=== PATIENT | male | born 1980 ===

== ENCOUNTER → 2020-02-13 | Outpatient (CLI) | payer OTHER ==
[~2020-02-13] MED LIST: ZOLPIDEM 5 MG TABLET. PO ONE
--- NOTE | 2020-02-14 12:00 | SLEEP ---
DATE OF STUDY: 02/13/2020 SLEEP STUDY ATTENDING PHYSICIAN: Jj Regan MD The patient is 39 years old who weighs 183 pounds with a BMI of 27. The patient underwent split night study performed at [facility]. His Nunda score was 10. During the night study, the patient spent 414 minutes in bed and slept for 253 minutes with a low sleep efficiency of 61%. Sleep latency was 27 minutes with a REM latency of 335 minutes. Sleep architecture showed increased stage 1 sleep, normal stage 2 sleep, normal slow wave and slightly reduced REM sleep. During the initial diagnostic portion of the study, the patient slept for 73 minutes. During that time, there were 73 obstructive apneas, no mixed or central apneas and 51 hypopneas. The patient's AHI was 103 per hour. Supine AHI was 109 per hour. The patient did not have REM sleep. EKG monitoring revealed no arrhythmias. Average heart rate was 80 beats per minute. No PLM seen. Nocturnal oximetry study revealed a mean oxygen saturation of 96% with the lowest of 82%. 17% of time oxygen saturation remained between 80% and 89%. The patient met the criteria for CPAP initiation. It was started at 7 cm water and titrated up to 11 cm water. At the final pressure, the patient slept for 78 minutes. The patient had supine as well as REM sleep. The patient's AHI was reduced to 0 per hour and oxygen saturation remained above 94%. The patient used small size full face mask. IMPRESSION: 1. Severe obstructive sleep apnea at an AHI of 103 per hour. 2. Nocturnal hypoxia secondary to obstructive sleep apnea, but resolved with CPAP. 3. No clinically significant periodic limb movements. 4. Reduced sleep efficiency of 61%, resulting from sleep maintenance insomnia. RECOMMENDATIONS: 1. CPAP at 11 cm water completely eliminated the patient's sleep apnea and should be used on a nightly basis. 2. Follow up in 4-6 weeks to assess compliance with CPAP and to document clinical improvement. 3. Avoid [employer] depressants. 4. Weight loss to the ideal body weight is recommended. 5. Caution regarding driving until symptoms of sleep apnea resolve with the use of CPAP. JAMIE JUAN MD DR: AMIRAH/mmai JOB#: [id number] / [id number] JJ Stewart MD
== END ==
LOC: RT 19:06
PROVIDERS: ATTEND Family Medicine
DX: G47.33 Obstructive sleep apnea (adult) (pediatric) (principal); G47.34 Idiopathic sleep related nonobstructive alveolar hypoventilation; G47.09 Other insomnia
CPT/HCPCS: 95810